=== PATIENT | female | born 1950 | race Caucasian/White ===

== ENCOUNTER 2018-06-14 20:26 | Emergency (ER) | payer OTHER ==
[~2018-06-14] VITALS: Ht 162.6 cm; Wt 79.4 kg
[~2018-06-14 20:26] MED LIST: IBUP800; LORA1 PO; OXYACE7.5T PO; RANI150; RANI150 PO; TRAZ100; TRAZ100 PO; [UNRECOGNIZED DRUG - OTHER]
[2018-06-14 21:03] LABS: BASOPHILS ABSOLUTE AUTO 0.06 K/mm3 (0.00-0.23); BASOPHILS PERCENT AUTO 1 % (0-2); EOSINOPHILS PERCENT AUTO 2 % (0-6); Hematocrit 23.1 % (33.0-51.0); Hemoglobin 6.3 g/dL (11.5-16.0); IMMATURE GRAN ABSOLUTE AUTO 0.02 K/mm3 (0.00-0.10); IMMATURE GRAN PERCENT AUTO 0 % (0-1); LYMPHOCYTES ABSOLUTE AUTO 1.87 K/mm3 (0.84-5.20); LYMPHOCYTES PERCENT AUTO 22 % (21-46); MONOCYTES ABSOLUTE AUTO 1.11 K/mm3 (0.16-1.47); MONOCYTES PERCENT AUTO 13 % (4-13); Mean Corpuscular HGB 21.3 pg (26.0-34.0); Mean Corpuscular HGB Conc 27.3 g/dL (31.5-36.5); Mean Corpuscular Volume 78 fL (80-100); Mean Platelet Volume 9.1 fL (9.1-12.4); NEUTROPHILS ABSOLUTE AUTO 5.36 K/mm3 (1.96-9.15); NEUTROPHILS PERCENT AUTO 62 % (41-73); Platelet Count 439 K/mm3 (150-400); Red Blood Cell Count 2.96 M/mm3 (3.80-5.20); White Blood Cell Count 8.62 K/mm3 (4.00-11.30)
[2018-06-14 21:24] LABS: Alanine Aminotransfer (ALT/SGP 18 U/L (12-78); Albumin, Blood 3.2 g/dL (3.4-5.0); Albumin/Globulin Ratio 0.9 (0.8-1.8); Alk Phos 97 U/L (50-136); Anion Gap 9 mmol/L (6-16); Aspartate Aminotrans (AST/SGOT 19 U/L (12-37); Bilirubin, Total 0.2 mg/dL (0.1-1.0); Blood Urea Nitrogen 29 mg/dL (8-24); Bun/Creatinine Ratio 31.5 (12.0-20.0); CO2, Blood 24 mmol/L (21-32); Calcium, Blood 8.3 mg/dL (8.5-10.1); Chloride, Blood 107 mmol/L (98-108); Creatinine, Blood 0.92 mg/dL (0.40-1.00); Globulin, Blood 3.7 g/dL (2.2-4.0); Glomerular Filtration Rate >60 (60-); Glucose, Blood 95 mg/dL (70-99); Sodium, Blood 140 mmol/L (136-145); Total Protein, Blood 6.9 g/dL (6.4-8.2)
== END 2018-06-15 00:20 | disposition left against medical advice (07) ==
LOC: ER 20:26
PROVIDERS: Emergency Medicine
DX: D62 Acute posthemorrhagic anemia (principal); Z88.0 Allergy status to penicillin; Z88.1 Allergy status to other antibiotic agents; Z88.5 Allergy status to narcotic agent; Z88.8 Allergy status to other drugs, medicaments and biological substances; Z79.899 Other long term (current) drug therapy; F43.10 Post-traumatic stress disorder, unspecified; F17.210 Nicotine dependence, cigarettes, uncomplicated
CPT/HCPCS: 36415; 36430; 71046; 80053; 84484; 85025; 86850; 86900; 86901; 86923; 93005; 93010; 99285-25; J7030; P9016

== ENCOUNTER 2018-07-07 11:19 | Day surgery (SDC) | payer OTHER ==
[2018-07-07] MEDS ORDERED: IBU800 MG PO (14:53)
[2018-07-07] MEDS ORDERED: Flovent 110 MCG12 GM INH (14:54)
[2018-07-07] MEDS ORDERED: Fergon240 M1 PO (14:54)
[2018-07-07] MEDS ORDERED: ALBU90OI61 INH (14:55)
[2018-07-07] MEDS ORDERED: COMBIVENT RESPIM4 GM INH (14:56)
[2018-07-07] MEDS ORDERED: FURO20 PO (14:56)
== END 2018-07-07 17:45 | disposition home or self-care (01) ==
LOC: ATC 11:19
DX: D50.9 Iron deficiency anemia, unspecified (principal); R53.1 Weakness; E11.9 Type 2 diabetes mellitus without complications; E66.01 Morbid (severe) obesity due to excess calories; I11.9 Hypertensive heart disease without heart failure
CPT/HCPCS: 36430; 86850; 86900; 86901; 86923; J7050; P9016

== ENCOUNTER 2018-10-05 09:43 | Day surgery (SDC) | payer OTHER ==
[~2018-10-05] VITALS: Ht 167.6 cm; Wt 70.2 kg
[~2018-10-05 09:43] MED LIST changes: +ALBU90OI61 INH; +COMBIVENT RESPIM4 GM INH; +FURO20 PO; +Fergon240 M1 PO; +Flovent 110 MCG12 GM INH; +IBU800 MG PO
== END 2018-10-05 11:42 | disposition home or self-care (01) ==
LOC: ORSCSDS 09:43
PROVIDERS: Student in an Organized Health Care Education/Training Program
PROC: 0DJD8ZZ Inspection of Lower Intestinal Tract, Via Natural or Artificial Opening Endoscopic (ICD-10-PCS; principal; 2018-10-05 10:45)
PROC: 0DB98ZX Excision of Duodenum, Via Natural or Artificial Opening Endoscopic, Diagnostic (ICD-10-PCS; principal; 2018-10-05 10:45)
PROC: 0DB68ZX Excision of Stomach, Via Natural or Artificial Opening Endoscopic, Diagnostic (ICD-10-PCS; principal; 2018-10-05 10:45)
DX: D50.9 Iron deficiency anemia, unspecified (principal); K29.50 Unspecified chronic gastritis without bleeding; K31.89 Other diseases of stomach and duodenum; K44.9 Diaphragmatic hernia without obstruction or gangrene; K92.1 Melena; R63.4 Abnormal weight loss; J44.9 Chronic obstructive pulmonary disease, unspecified; F17.210 Nicotine dependence, cigarettes, uncomplicated; E78.5 Hyperlipidemia, unspecified; B19.20 Unspecified viral hepatitis C without hepatic coma; Z79.899 Other long term (current) drug therapy
CPT/HCPCS: 88305; 88342; J2250; J2704; J7120